=== PATIENT | female | born 1960 | race Two or more races ===

== ENCOUNTER 2019-01-28 22:33 | Inpatient (IN) | payer MEDICARE, OTHER ==
[~2019-01-28] VITALS: Ht 188 cm; Wt 80.7 kg
[2019-01-29 01:00] VITALS: BP 93/62
[2019-01-29 01:28] VITALS: BP 93/62
--- NOTE | 2019-01-29 01:30 | NUR ---
GPS ADMISSION NOTE PATIENT RECEIVED FROM [facility] (RESIDES AT [facility]). PATIENT ARRIVED ON THIS UNIT AT 0100 VIA STRETCHER WITH 2 EMT ESCORTS. PATIENT ADMITTED ON A 5150 HOLD FOR DTS AND DTO. PATIENT IS A/OX3. PER HOLD, PATIENT HERE FOR NOT BEING MED COMPLIANT AND "USED HER LEAD SYSTEMS DEVELOPER TO SET FIRE TO A PEER'S SHIRT WHILE SITTING OUTSIDE. SHE ALSO ATTEMPTED TO SET FIRE TO ANOTHER PEER'S SHIRT". PATIENT STATES, "I DONT KNOW WHY I DID IT" AND VERBALIZES FEELINGS OF SADNESS. THE 5150 WAS REVIEWED AND THE DOCUMENTATION IN THE 5150 HOLD APPEARS TO REFLECT THE PRESENTATION OF THE PATIENT. UPON FACE TO FACE ASSESSMENT PATIENT IS CURRENTLY LYING IN BED AWAKE, HAS NO S/S OR COMPLAINTS OF PAIN. PATIENT IS DISPLAYING NO S/S OF APPARENT DISTRESS. PATIENT IS ON ROOM AIR, BREATHING IS UNLABORED WITH EQUAL RISE AND FALL OF THE CHEST. PATIENT HAS INDEPENDENT MOBILITY IN BED AND IS AMBULATORY. PATIENT HAS NO NEEDS AT THIS TIME. PATIENT IS NOTED TO BEING WITHDRAWN, DEPRESSED, DISHEVELED, DISORGANIZED BUT CALM AND COOPERATIVE AT THIS TIME. NEEDS REDIRECTION. PATIENT DENIES SUICIDE IDEATIONS AND HOMICIDAL IDEATIONS AT THIS TIME. PATIENT DENIES VISUAL, AUDITORY AND TACTILE HALLUCINATIONS. PATIENT IS UNDER THE PSYCHIATRIC CARE OF DR. GELLER AND THE MEDICAL CARE OF DR KUMAR. PATIENT BELONGINGS WERE INVENTORIED AND CHECKED FOR CONTRABAND. ALL CONTRABAND REMOVED AND STORED IN PATIENT HALLWAY LOCKER. PATIENT ADVANCED DIRECTIVES PREFERENCE, IMMUNIZATIONS QUESTIONER, NECESSARY PAPERWORK, AND SKIN ASSESSMENT COMPLETED. PATIENT ORIENTATED TO ROOM, FLOOR, AND STAFF WITH ALL QUESTIONS ANSWERED. PATIENT EDUCATED ON THE USE OF THE CALL CERVANTES. PATIENT BED SIDE RAILS ARE UP X 2 FOR SAFETY. PATIENT BED IS LOCKED, LOW AND I WILL CONTINUE TO MONITOR THIS PATIENT Q 15 MIN WITH THE HELP OF STAFF TO MAINTAIN SAFETY.
[2019-01-29] MEDS ORDERED: MAG HYDROX/AL HYDROX/SIMETH 30 ML UDC PO PRN (02:00)
[2019-01-29] MEDS ORDERED: MAGNESIUM HYDROXIDE 30 ML UDC PO PRN (02:00)
[2019-01-29] MEDS ORDERED: ACETAMINOPHEN 325 MG TABLET PO PRN (02:00)
[2019-01-29] MEDS ORDERED: OMEG1CAP PO (02:07)
[2019-01-29] MEDS ORDERED: FLUO40CA49 PO (02:08)
[2019-01-29] MEDS ORDERED: MULT1TAB73 PO (02:09)
[2019-01-29] MEDS ORDERED: QUET200T PO (02:10)
[2019-01-29] MEDS ORDERED: HALO5TAB PO (02:12)
[2019-01-29] MEDS ORDERED: ACET-2067 PO (02:13)
[2019-01-29] MEDS ORDERED: LOPE2CAP PO (02:15)
[2019-01-29 07:10] LABS: BASOPHILS # (AUTO) 0.1 /CMM (0.0-0.2); EOSINOPHILS % (AUTO) 2.2 % (0.0-6.0); HEMATOCRIT 39 % (33-45); HEMOGLOBIN 13.4 g/dL (11.5-14.8); LYMPHOCYTES # (AUTO) 2.4 /CMM (0.8-4.8); LYMPHOCYTES % (AUTO) 41.4 % (20.0-44.0); MEAN CORPUSCULAR HGB CONC 35 g/dl (31.0-36.0); MEAN CORPUSCULAR VOLUME 93 fL (82-100); MONOCYTES # (AUTO) 0.5 /CMM (0.1-1.30); MONOCYTES % (AUTO) 8.7 % (2.0-12.0); NEUTROPHILS # (AUTO) 2.7 /CMM (1.8-8.9); NEUTROPHILS % (AUTO) 46.7 % (43.0-81.0); PLATELET COUNT (AUTO) 184 /CMM (150-450); RED BLOOD CELL COUNT(AUTO) 4.17 MIL/uL (4.0-5.2); WHITE BLOOD COUNT (AUTO) 5.8 K/uL (4.3-11.0)
[2019-01-29 07:12] LABS: BILIRUBIN,TOTAL 0.3 mg/dL (0.2-1.0); CALCIUM, SERUM 8.5 mg/dL (8.5-10.1); CREATININE 0.8 mg/dL (0.6-1.3); POTASSIUM 4.2 mmol/L (3.5-5.1)
[2019-01-29 08:00] VITALS: BP 100/64
[2019-01-29] MEDS: NICOTINE PATCH (21MG) 21 MG PATCH.TD24 TD SCH (09:00)
--- NOTE | 2019-01-29 10:15 | NUR ---
GPS/RN-NOTES PATIENT REFUSED NICOTINE PATCH DESPITE EXPLANATIONS RISK AND BENEFITS. PATIENT STATED" I'M OK WITHOUT IT". OFFERED X3.
--- NOTE | 2019-01-29 10:29 | NUR ---
GPS/RN-NOTES CLINICAL NURSING INTERN CALLED PATIENT CONSERVATOR MINDI HERNANDEZ AT [phone] AND LEFT MSG. VIA VOICE MAIL.
--- NOTE | 2019-01-29 13:52 | NUR ---
Social Work: aids social worker attempted to conduct face to face assessment, pt requested social work return after lunch. Social work attempted to assess pt, pt was asleep and could not be prompted. Social work will attempt again at a later time.
[2019-01-29] MEDS: LORAZEPAM 0.5 MG TABLET PO PRN (15:04)
--- NOTE | 2019-01-29 15:05 | NUR ---
GPS/RN-NOTES PATIENT REQUESTING ATIVAN, STATED" I'M ANXIOUS". ATIVAN 0.5MG P.O GIVEN PRN ORDER. WILL CONT. MONITORING FOR SAFETY AND BEHAVIOR.
--- NOTE | 2019-01-29 15:27 | NUR ---
Social Work: Social work reached out to pts conservator Rashaad (pts brother) [phone]. Pts brother reports he is the pts LPS conservator. Conservator is worried about pts actions, he is requesting pt be discharged to a locked facility for her and other pts safety. Social work spoke with pts Dr Martin who is recommending possible placement at [facility] Address: [address] [place] [address] Fax: and [facility] Address: [address] [place] [address] Fax: . Social work informed pts conservator of placement and pts conservator states he will look into facilities. Pt was brought to [facility] from [facility] a mental health housing program for 18-59 year olds. Pts brother reports that the facility is similar to a nursing home house with many freedoms. Pts brother who is pts conservator feels pt is need of a locked facility. Pts conservator reports that pt receives SDI in the amount of $1,719. Social work spoke with Angelique Nurse Advocate at [facility] ([phone]). bag worker Angelique reported that she has spoken with her field crop farming supervisor and facility is willing to accept pt back when discharged. bag worker is also going to speak with pts brother regarding [facility] locked facilities referrals as well. Social work will follow up with MD and medical staff regarding future placement.
[2019-01-29 16:00] VITALS: BP 100/51
--- NOTE | 2019-01-29 16:05 | NUR ---
GPS/RN-NOTES. PATIENT IN BED SLEEPING,NO ACUTE DISTRESS NOTED.
[2019-01-29 17:31] LABS: APPEARANCE,URINE CLEAR (CLEAR); BILIRUBIN,URINE NEGATIVE (NEGATIVE); BLOOD, URINE 1+ Ery/uL (NEGATIVE); COLOR,URINE YELLOW (YELLOW); KETONES,URINE NEGATIVE (NEGATIVE); LEUKOCYTE ESTERASE ,URINE 1+ (NEGATIVE); NITRITE, URINE NEGATIVE (NEGATIVE); PH,URINE 6.5 (5.0-8.0); PROTEIN,URINE NEGATIVE (NEGATIVE); UGLUCOSE NEGATIVE (NEGATIVE); UROBILINOGEN,URINE 0.2 EU/dL (0.2)
[2019-01-29 17:40] LABS: BACTERIA,URINE Few /HPF (None Seen); RBC,URINE 0-2 /HPF (0-2); SQUAMOUS EPITHELIAL CELL,UR Few /HPF (None Seen)
[2019-01-29 19:59] VITALS: BP 92/44
[2019-01-29] MEDS ORDERED: QUETIAPINE FUMARATE 100 MG TABLET PO SCH (21:00)
[2019-01-29 22:46] VITALS: BP 104/67
[2019-01-30 07:03] LABS: CHOLESTEROL 200 mg/dL (<200); HDL CHOLESTEROL 46 mg/dL (40-60); LDL 129 mg/dL (0-99); TRIGLYCERIDES 160 mg/dL (30-150)
[2019-01-30 08:00] VITALS: BP 100/63
[2019-01-30] MEDS: NICOTINE PATCH (21MG) 21 MG PATCH.TD24 TD SCH (09:00)
[2019-01-30] MEDS: FLUOXETINE HCL 20 MG CAPSULE PO SCH (09:00)
--- NOTE | 2019-01-30 09:54 | NUR ---
GPS/RN-NOTES PATIENT SPITS ALL DUE MEDICATIONS STATED" IT WILL GIVE ME INFECTIONS ON MY BLADDER". EMPLOYEE RELATION MANAGER EXPLAINED RISK AND BENEFITS BUT PATIENT STILL REFUSED. DR. GELLER IN THE UNIT AT THIS TIME AND MADE AWARE OF PATIENT REFUSAL.
[2019-01-30] MEDS ORDERED: HALOPERIDOL LACTATE INJ 5 MG/ML VIAL IM PRN (10:00)
[2019-01-30] MEDS ORDERED: BENZTROPINE MESYLATE (2MG/2ML) 2 MG/2 ML AMPUL IM PRN (10:00)
[2019-01-30] MEDS: HALOPERIDOL LACTATE 10 MG/5 ML UDC PO SCH ×2 (10:47→16:05)
[2019-01-30] MEDS: BENZTROPINE MESYLATE (1 MG) 1 MG TABLET PO SCH ×2 (10:47→16:05)
--- NOTE | 2019-01-30 11:17 | NUR ---
INITIAL DISCHARGE PLAN: Pt is currently living at [facility] a mental health facility, however pt has decline to return to facility. Social work has spoken with pts LPS conservator (pts brother Rashaad ([phone]) who is requesting pt be placed in a locked facility. Social work and psychiatrist have provided pts LPS conservator with placement options. Social work spoke with Dr Martin who is recommending possible placement at [facility] [place] Address: [address] [place] [address] Fax: and [facility] Address: [address] [place] [address] Fax: . Social work spoke with pts LPS conservator who stated that he is interested in [place] for his sisters placement. Sw will help form a safe and proper discharge in collaboration with .
[2019-01-30] MEDS: LORAZEPAM 0.5 MG TABLET PO PRN (14:07)
--- NOTE | 2019-01-30 14:10 | NUR ---
GPS/RN-NOTES PATIENT REQUESTING ATIVAN FOR ANXIETY. ATIVAN 0.5MG P.O GIVEN PRN ORDER.WILL CONT. MONITORING FOR SAFETY AND BEHAVIOR.
--- NOTE | 2019-01-30 15:10 | NUR ---
GPS/RN-NOTES PATIENT LAYING IN BED CALM,NO ACUTE DISTRESS NOTED.
--- NOTE | 2019-01-30 19:21 | NUR ---
RESTING, CALM, COMFORTABLE, DPRESSED. NO APPARENT DISTRESS NOTED.
[2019-01-30] MEDS: TEMAZEPAM 7.5 MG CAPSULE PO PRN (23:48)
--- NOTE | 2019-01-30 23:48 | NUR ---
Unable to sleep, temazepam 7.5 mg cap po given per her request.
--- NOTE | 2019-01-31 02:35 | NUR ---
PATIENT VERBALIZED, " I AM HEARING VOICES TELLING ME TO KILL EVERYONE." INSTRUCTED PATIENT TO GO BACK TO SLEEP.
[2019-01-31] MEDS: BENZTROPINE MESYLATE (1 MG) 1 MG TABLET PO SCH ×3 (02:40→16:55)
[2019-01-31] MEDS: LORAZEPAM 0.5 MG TABLET PO PRN ×3 (02:40→21:32)
--- NOTE | 2019-01-31 03:38 | NUR ---
APPROACHED THE NURSE'S STATION, ASKING FOR RESTORIL AGAIN, UNABLE TO SLEEP, ATIVAN 0.5 MG TAB PO GIVEN.
--- NOTE | 2019-01-31 04:05 | NUR ---
PATIENT CAME UP TO THE NURSE'S STATION AND STATED THAT SHE WANTS TO PUT WATER INTO THE OUTLET SO SHE CAN ELECTRECUTE HERSELF.
--- NOTE | 2019-01-31 04:16 | NUR ---
CALLED DR JEFFERSON ABOUT PATIENT'S CURRENT BEHAVIOR. ORDERED ZYPREXA 10 MG IM X1.
--- NOTE | 2019-01-31 04:25 | NUR ---
ZYPREXA 10 MG IM GIVEN X1. PATIENT ATTEMPTED TO HURT ANOTHER MALE PATIENT BY TOUCHING PUSHING HIS ARM. SHE GOT HOLD OF THE OLVIN CHAIR AND SHOVED IT BACK AND FORTH IN FRONT OF THE SAME PATIENT. EARLIER, SHE VERBALIZED THAT SHE WAS HEARING VOICES TELLING HER TO KILL EVERYONE. ALSO SHE VERBALIZED THAT SHE WANTS TO PUT WATER ON THE ELECTRIC OUTLET SO THAT SHE CAN GET ELECTRECUTED.
[2019-01-31] MEDS ORDERED: OLANZAPINE 10 MG VIAL IM ONE (04:30)
--- NOTE | 2019-01-31 05:30 | NUR ---
PATIENT GOT OUT OF HER OLVIN-CHAIR, PUSHED IT TO THE NURSE'S STATION, ATTEMPTED TO CLIMB UP BY STANDING ON THE OLVIN-CHAIR, SHE LIKES TO GET INSIDE AND USE THE TELEPHONE.
[2019-01-31 08:00] VITALS: BP 100/62
[2019-01-31] MEDS: NICOTINE PATCH (21MG) 21 MG PATCH.TD24 TD SCH (09:00)
[2019-01-31] MEDS: FLUOXETINE HCL 20 MG CAPSULE PO SCH (09:18)
[2019-01-31] MEDS: HALOPERIDOL LACTATE 10 MG/5 ML UDC PO SCH ×2 (09:18→16:55)
[2019-01-31 16:00] VITALS: BP 115/77
[2019-01-31 20:00] VITALS: BP 105/69
[2019-01-31] MEDS: TEMAZEPAM 7.5 MG CAPSULE PO PRN (21:00)
--- NOTE | 2019-01-31 21:00 | NUR ---
REQUESTED FOR SLEEPING PILL, TEMAZEPAM 7.5 MG CAP PO GIVEN.
--- NOTE | 2019-01-31 21:33 | NUR ---
APPEARS ANXIOUS, MAKING SMALL REQUEST LIKE WATER,UP AND ABOUT IN AND OUT OF HER ROOM, ATIVAN 0.5 MG TAB PO GIVEN.
[2019-02-01] MEDS: LORAZEPAM 0.5 MG TABLET PO PRN ×3 (03:29→16:03)
[2019-02-01 08:00] VITALS: BP 111/60
[2019-02-01] MEDS: NICOTINE PATCH (21MG) 21 MG PATCH.TD24 TD SCH (08:20)
[2019-02-01] MEDS: FLUOXETINE HCL 20 MG CAPSULE PO SCH (08:20)
[2019-02-01] MEDS: BENZTROPINE MESYLATE (1 MG) 1 MG TABLET PO SCH ×2 (08:20→17:41)
[2019-02-01] MEDS: HALOPERIDOL LACTATE 10 MG/5 ML UDC PO SCH ×2 (08:20→17:41)
[2019-02-01 16:07] VITALS: BP 98/67
--- NOTE | 2019-02-01 17:46 | NUR ---
GPS RN NOTE: PATIENT COMPLAIN THAT HALDOL MAKE HER FEEL NOT TO RELAX AND MORE AGITATED. PATIENT REQUESTING TO TALK TO HER PSYCHIATRIST. EXPLAINED TO THE PATIENT THAT WE WILL FOLLOW UP ON HER REQUEST. PATIENT AGREED AND APPRECIATED. ALL NEEDS ATTENDED AND MET. WILL CONTINUE TO MONITOR AND WILL FOLLOW UP
--- NOTE | 2019-02-01 19:34 | NUR ---
GPS RN NOTE, RECEIVED PATIENT AWAKE AND IN ROOM NO S/S OR COMPLAINTS OF PAIN AT THIS TIME. PATIENT IS DISPLAYING NO S/S OF APPARENT DISTRESS AT THIS TIME. PATIENT BREATHING IS UNLABORED WITH EQUAL RISE AND FALL OF THE CHEST. PATIENT IS ONE TO ONE SITTER FOR BEING A DANGER TO OTHERS. PATIENT IS ALERT AND ORIENTED X 3 ON ROOM AIR WITH A SPO2 OF 97%. PATIENT IS MED COMPLIANT, DISORGANIZED, DEPRESSED, COOPERATIVE, AND NEEDS REORIENTATION. PATIENT DENIES SUICIDE AND HOMICIDAL IDEATIONS AT THIS TIME. PATIENT ASSISTED WITH TURNING AND REPOSITIONING Q2HR AND PRN FOR COMFORT AND CIRCULATION. PATIENT HAS NO NEEDS AT THIS TIME. PATIENT EDUCATED ON THE USE OF THE CALL CERVANTES. PATIENT BED SIDE RAILS ARE UP X 2 FOR SAFETY, BED IS LOCKED AND LOW. WILL CONTINUE TO MONITOR AND MAINTAIN SAFETY Q15 MIN WITH THE HELP OF STAFF.
[2019-02-01 20:00] VITALS: BP 90/43
[2019-02-01] MEDS: TEMAZEPAM 7.5 MG CAPSULE PO PRN (20:06)
--- NOTE | 2019-02-01 20:06 | NUR ---
GPS RN NOTE, PATIENT HAS A COMPLAINT OF NOT BEING ABLE TO SLEEP AND IS REQUESTING RESTORIL AT THIS TIME. PATIENT VITAL SIGNS ARE STABLE. GAVE RESTORIL 7.5MG PO HS PRN ORDERED. WILL REASSESS FOR INSOMNIA AND I WILL CONTINUE TO MONITOR THIS PATIENT.
[2019-02-01] MEDS: OLANZAPINE 2.5 MG TABLET PO SCH (23:12)
[2019-02-02] MEDS: LORAZEPAM 0.5 MG TABLET PO PRN ×3 (07:00→20:06)
--- NOTE | 2019-02-02 07:00 | NUR ---
GPS RN NOTE, PATIENT HAS A COMPLAINT OF FEELING ANXIOUS AND IS REQUESTING ATIVAN AT THIS TIME. PATIENT VITAL SIGNS ARE STABLE. GAVE ATIVAN 0.5MG PO Q6HR PRN PRN ORDERED. WILL REASSESS FOR ANXIETY AND I WILL CONTINUE TO MONITOR THIS PATIENT.
[2019-02-02 08:00] VITALS: BP 100/62
[2019-02-02] MEDS: FLUOXETINE HCL 20 MG CAPSULE PO SCH (08:28)
[2019-02-02] MEDS: NICOTINE PATCH (21MG) 21 MG PATCH.TD24 TD SCH (08:28)
[2019-02-02] MEDS: OLANZAPINE 2.5 MG TABLET PO SCH ×2 (08:29→21:02)
[2019-02-02 16:00] VITALS: BP 100/66
--- NOTE | 2019-02-02 19:30 | NUR ---
GPS RN NOTE, RECEIVED PATIENT AWAKE AND IN ROOM NO S/S OR COMPLAINTS OF PAIN AT THIS TIME. PATIENT IS DISPLAYING NO S/S OF APPARENT DISTRESS AT THIS TIME. PATIENT BREATHING IS UNLABORED WITH EQUAL RISE AND FALL OF THE CHEST. PATIENT IS ALERT AND ORIENTED X 3 ON ROOM AIR WITH A SPO2 OF 95%. PATIENT IS MED COMPLIANT, DISORGANIZED, DEPRESSED, COOPERATIVE, AND NEEDS REORIENTATION. PATIENT DENIES SUICIDE AND HOMICIDAL IDEATIONS AT THIS TIME. PATIENT ASSISTED WITH TURNING AND REPOSITIONING Q2HR AND PRN FOR COMFORT AND CIRCULATION. PATIENT HAS NO NEEDS AT THIS TIME. PATIENT EDUCATED ON THE USE OF THE CALL CERVANTES. PATIENT BED SIDE RAILS ARE UP X 2 FOR SAFETY, BED IS LOCKED AND LOW. WILL CONTINUE TO MONITOR AND MAINTAIN SAFETY Q15 MIN WITH THE HELP OF STAFF.
[2019-02-02 19:33] VITALS: BP 102/63
--- NOTE | 2019-02-02 20:06 | NUR ---
GPS RN NOTE, PATIENT HAS A COMPLAINT OF OF FEELING ANXIOUS AND IS REQUESTING ATIVAN AT THIS TIME. PATIENT VITAL SIGNS ARE STABLE. GAVE ATIVAN 0.5MG PO Q6HR PRN ORDERED. WILL REASSESS FOR ANXIETY AND I WILL CONTINUE TO MONITOR THIS PATIENT.
[2019-02-02] MEDS: TEMAZEPAM 7.5 MG CAPSULE PO PRN (22:07)
[2019-02-03] MEDS: LORAZEPAM 0.5 MG TABLET PO PRN ×2 (08:24→15:16)
[2019-02-03 08:41] VITALS: BP 143/77
[2019-02-03] MEDS: FLUOXETINE HCL 20 MG CAPSULE PO SCH (08:43)
[2019-02-03] MEDS: NICOTINE PATCH (21MG) 21 MG PATCH.TD24 TD SCH (08:44)
[2019-02-03] MEDS: OLANZAPINE 2.5 MG TABLET PO SCH ×2 (08:44→20:20)
[2019-02-03 16:00] VITALS: BP 102/71
[2019-02-03 19:46] VITALS: BP 95/60
[2019-02-03] MEDS: TEMAZEPAM 7.5 MG CAPSULE PO PRN (21:24)
[2019-02-04] MEDS: ACETAMINOPHEN 325 MG TABLET PO PRN ×4 (06:29→22:17)
[2019-02-04 08:00] VITALS: BP 106/78
[2019-02-04] MEDS: FLUOXETINE HCL 20 MG CAPSULE PO SCH (08:35)
[2019-02-04] MEDS: LORAZEPAM 0.5 MG TABLET PO PRN ×2 (08:35→15:45)
--- NOTE | 2019-02-04 08:36 | NUR ---
GPS/RN-NOTES PATIENT REQUESTING ATIVAN FOR ANXIETY. ATIVAN 0.5MG P.O GIVEN PRN ORDER. WILL CONT. MONITORING FOR SAFETY AND BEHAVIOR.
[2019-02-04] MEDS: OLANZAPINE 2.5 MG TABLET PO SCH ×2 (08:43→20:31)
[2019-02-04] MEDS: NICOTINE PATCH (21MG) 21 MG PATCH.TD24 TD SCH (09:00)
--- NOTE | 2019-02-04 13:59 | NUR ---
SNF REFERRAL: JAMES faxed SNf referral to Dee, housing coordinator at [facility] Address: [address] [place] [address] for review.
--- NOTE | 2019-02-04 14:07 | NUR ---
JAMES received a call from Angelique, geriatric social worker at [facility] [address] [facility] [phone] requesting an update on pts status. JAMES informed her based on psychiatrist notes pt is still paranoid and seclusive and is taking medication. JAMES also informed her that pts brother who is pts conservator has requested pt be discharged to a locked SNF. Angelique stated that pt is able to return to the facility is pt wishes to. JAMES will keep Angelique updated.
[2019-02-04] MEDS: CEPHALEXIN MONOHYDRATE 250 MG CAPSULE PO SCH ×3 (14:30→23:19)
--- NOTE | 2019-02-04 14:33 | NUR ---
SUPPORTIVE COUNSELING: JAMES provided supportive counseling to pt regarding suicidality and being medication compliant. Pt has been taking her medications and wishes to return to [facility]. SW informed her that pts conservator wishes for her to be discharged to a locked SNF. JAMES will contact brother/conservator to discuss discharge plan.
[2019-02-04 15:11] VITALS: BP 106/70
--- NOTE | 2019-02-04 15:46 | NUR ---
GPS/RN-NOTES PATIENT STATED "I NEED MY ATIVAN". ATIVAN 0.5MG P.O GIVEN PRN ORDER. WILL CONT. MONITORING FOR SAFETY AND BEHAVIOR.
--- NOTE | 2019-02-04 16:14 | NUR ---
GPS/RN-NOTES PATIENT REQUESTING TYLENOL FOR BACK PAIN. TYLENOL 325MG P.O GIVEN PRN ORDER. WILL CONT. MONITORING.
--- NOTE | 2019-02-04 17:07 | NUR ---
GPS/RN-NOTES PATIENT IN THE HALLWAY AMBULATING .NO ACUTE DISTRESS NOTED. ENDORSE TO CHARGE NURSE FOR CONTINUITY OF CARE.
[2019-02-04 19:35] VITALS: BP 110/71
[2019-02-04] MEDS: TEMAZEPAM 7.5 MG CAPSULE PO PRN (21:44)
[2019-02-05] MEDS: CEPHALEXIN MONOHYDRATE 250 MG CAPSULE PO SCH ×3 (05:07→17:44)
[2019-02-05] MEDS: ACETAMINOPHEN 325 MG TABLET PO PRN (06:00)
[2019-02-05 08:00] VITALS: BP 122/71
[2019-02-05] MEDS: LORAZEPAM 0.5 MG TABLET PO PRN ×2 (08:32→16:34)
--- NOTE | 2019-02-05 08:34 | NUR ---
GPS/RN-NOTES PATIENT STATED "I NEED MY ATIVAN,I'M ANXIOUS". ATIVAN 0.5MG P.O GIVEN PRN ORDER. WILL CONT. MONITORING FOR SAFETY AND BEHAVIOR.
[2019-02-05] MEDS: NICOTINE PATCH (21MG) 21 MG PATCH.TD24 TD SCH (09:00)
[2019-02-05] MEDS: FLUOXETINE HCL 20 MG CAPSULE PO SCH (09:02)
[2019-02-05] MEDS: OLANZAPINE 2.5 MG TABLET PO SCH ×2 (09:02→20:50)
--- NOTE | 2019-02-05 09:35 | NUR ---
GPS/RN-NOTES PATIENT WATCHING TV IN THE DAY ROOM,CALM NO ACUTE DISTRESS NOTED.
--- NOTE | 2019-02-05 12:17 | NUR ---
GPS/RN-NOTES VANESSA LUNA SEEN THE PATIENT WITH NO TO INCREASED TYLENOL TO 650MG P.O Q6HR PRN. NOTED AND CARRIED OUT.
[2019-02-05] MEDS ORDERED: ACETAMINOPHEN 325 MG TABLET PO PRN (13:00)
--- NOTE | 2019-02-05 13:45 | NUR ---
JAMES called Angelique ([phone] ext [phone]) from [facility] and informed her that the pt will be going to [facility] ([facility]) tomorrow if the psychiatrist puts in a discharge order for the pt.
--- NOTE | 2019-02-05 13:48 | NUR ---
JAMES called the pts conservator Rashaad (pts brother) [phone] who stated that he was on a conference call and that he will call the SW back in 5-10 minutes.
--- NOTE | 2019-02-05 14:40 | NUR ---
Pts conservator Rashaad (pts brother) [phone] called the SW back and stated that he believes that [facility] will be a short term placement and therefore he would not like the room at [facility] to be given away.
--- NOTE | 2019-02-05 15:45 | NUR ---
JAMES called Angelique ([phone]) from [facility] and informed her that the pt will be going to [facility] the following day and that she should keep her room available because it may be a short term placement.
[2019-02-05 16:04] VITALS: BP 124/74
--- NOTE | 2019-02-05 16:21 | NUR ---
JAMES called the pts conservator Rashaad (pts brother) [phone] and left him a voicemail stating that the pt is going to be discharged the following day to [facility].
--- NOTE | 2019-02-05 16:34 | NUR ---
GPS/RN-NOTES PATIENT STATED "I NEED MY ATIVAN PLEASE". ATIVAN 0.5MG P.O GIVEN PRN ORDER. WILL CONT. MONITORING FOR SAFETY AND BEHAVIOR.
[2019-02-05 20:04] VITALS: BP 99/65
[2019-02-05] MEDS: TEMAZEPAM 7.5 MG CAPSULE PO PRN (21:08)
[2019-02-06] MEDS: CEPHALEXIN MONOHYDRATE 250 MG CAPSULE PO SCH ×3 (00:03→12:35)
[2019-02-06 08:00] VITALS: BP 109/67
[2019-02-06] MEDS: NICOTINE PATCH (21MG) 21 MG PATCH.TD24 TD SCH (08:17)
[2019-02-06] MEDS: FLUOXETINE HCL 20 MG CAPSULE PO SCH (08:17)
[2019-02-06] MEDS: OLANZAPINE 2.5 MG TABLET PO SCH (08:17)
--- NOTE | 2019-02-06 09:07 | NUR ---
DR. GELLER GAVE AN ORDER TO D/C PT. TO [facility], WITH MEDS TO CONTINUE AND TO FOLLOW UP WITH PSYCH AND MEDICAL DOCTORS.
[2019-02-06] MEDS: LORAZEPAM 0.5 MG TABLET PO PRN (10:27)
--- NOTE | 2019-02-06 10:30 | NUR ---
GPS/RN-NOTES PATIENT STATED "I NEED MY ATIVAN I'M ANXIOUS". ATIVAN 0.5MG P.O GIVEN PRN ORDER. WILL CONT. MONITORING FOR SAFETY AND BEHAVIOR.
--- NOTE | 2019-02-06 11:30 | NUR ---
GPS/RN-NOTES PATIENT IN THE DAY ROOM WATCHING TV,CALM, NO ACUTE DISTRESS NOTED.
--- NOTE | 2019-02-06 13:15 | NUR ---
GPS/RN-NOTES PATIENT WAS DISCHARGE TO [facility] [place] TODAY. REPORT WAS GIVEN TO ROBERT( BENCH ASSEMBLER OPERATOR). DR. GELLER AND VANESSA LUNA AWARE AND AGREES OF PATIENT DISCHARGE WITH ORDERS. PATIENT SIGN ALL DISCHARGE PAPERS INCLUDING BELONGINGS LIST. PATIENT LEFT THE UNIT IN STABLE CONDITION, DID NOT VERBALIZE SI/HI, DENIES VISUAL/AUDITORY HALLUCINATIONS AT THE TIME OF DISCHARGE.PER , PATIENTS BROTHER/ CONSERVATOR MINDI AWARE OF THE DISCHARGE. PRODUCT ENGINEER BY AMBULANCE VIA GURNEY WITH TWO STAFF ASSIST. PATIENT LEFT THE UNIT WITH ALL BELONGINGS.
--- NOTE | 2019-02-06 13:45 | NUR ---
DISCHARGE NOTE: Pt discharged to [facility] ([facility] located [place] [address] [place] [address]; . Pt was transported via [facility] (Trip #[id number]) to [facility] at 1PM. Pt's brother, Rashaad ([phone]), was notified and agreed with discharge. Pts mood was anxious with congruent affect. Pt denied visual/auditory hallucinations and denied suicidal/homicidal ideations. Pt will be under the psychiatric care of Psychiatrist: Dr. Martin located at [address] [facility], [place] [address]; and medical care of Dust Collector Operator: Dr. Weiss located at [address] [facility] [address] [address], [place] [address]; . The multidisciplinary exitcare form was done, printed, signed, and given to the patient.
== END 2019-02-06 13:15 | DRG 885 ==
LOC: GPS 01-29 00:53
PROVIDERS: ADMIT Psychiatry & Neurology Psychiatry; ATTEND Internal Medicine
DX: F20.0 Paranoid schizophrenia (principal); E44.1 Mild protein-calorie malnutrition; F29 Unspecified psychosis not due to a substance or known physiological condition; E78.5 Hyperlipidemia, unspecified; E88.09 Other disorders of plasma-protein metabolism, not elsewhere classified; Z91.14 Patient's other noncompliance with medication regimen; Z73.6 Limitation of activities due to disability; Z68.22 Body mass index [BMI] 22.0-22.9, adult
CPT/HCPCS: 36415; 80053-TC; 80061-TC; 81000-TC; 85025-TC; 87081-TC; 87086-TC; J3490

== ENCOUNTER 2021-11-03 10:43 | Inpatient (IN) | payer MEDICARE, OTHER ==
[~2021-11-03] VITALS: Ht 185.4 cm; Wt 74.8 kg
[~2021-11-03 10:43] MED LIST: ACET-3292 PO; FLUO40CA49 PO; HALO5TAB PO; LOPE2CAP PO; MULT-754 PO; OMEG1CAP PO; QUET200T PO
--- NOTE | 2021-11-03 10:50 | NUR ---
UNABLE TO PROVIDE URINE SAMPLE AT THIS TIME
[2021-11-03] MEDS ORDERED: OLANZAPINE 5 MG TABLET PO ONE ×2 (11:00→11:30)
--- NOTE | 2021-11-03 11:05 | NUR ---
COVID SWAB DONE AND SENT TO LAB
[2021-11-03] MEDS ORDERED: OLANZAPINE 5 MG TABLET ONE (11:09)
[2021-11-03 11:17] LABS: BASOPHILS % (AUTO) 0.5 % (0.0-2.0); EOSINOPHILS % (AUTO) 1.3 % (0.0-6.0); HEMATOCRIT 38 % (33-45); HEMOGLOBIN 12.9 g/dL (11.5-14.8); LYMPHOCYTES # (AUTO) 1.9 K/uL (0.8-4.8); LYMPHOCYTES % (AUTO) 29.2 % (20.0-44.0); MEAN CORPUSCULAR HGB CONC 34 g/dl (31.0-36.0); MEAN CORPUSCULAR VOLUME 93 fL (82-100); MONOCYTES # (AUTO) 0.6 K/uL (0.1-1.30); MONOCYTES % (AUTO) 9.3 % (2.0-12.0); NEUTROPHILS # (AUTO) 3.8 K/uL (1.8-8.9); NEUTROPHILS % (AUTO) 59.7 % (43.0-81.0); PLATELET COUNT (AUTO) 176 K/uL (150-450); RED BLOOD CELL COUNT(AUTO) 4.08 MIL/uL (4.0-5.2); WHITE BLOOD COUNT (AUTO) 6.4 K/uL (4.3-11.0)
[2021-11-03] MEDS ORDERED: OLANZAPINE 10 MG VIAL IM ONE (11:30)
[2021-11-03 12:11] LABS: CALCIUM, SERUM 8.3 mg/dL (8.5-10.1); CARBON DIOXIDE 26 mmol/L (21-32); CHLORIDE 105 mmol/L (98-107); CREATININE 0.8 mg/dL (0.6-1.3); GLUCOSE 95 mg/dL (74-106); POTASSIUM 3.9 mmol/L (3.5-5.1); SODIUM SERUM 139 mmol/L (136-145); UREA NITROGEN, BLOOD 13 mg/dL (7-18)
[2021-11-03 12:15] LABS: BILIRUBIN,URINE NEGATIVE (NEGATIVE); COLOR,URINE YELLOW (YELLOW); LEUKOCYTE ESTERASE ,URINE MODERATE (NEGATIVE); NITRITE, URINE NEGATIVE (NEGATIVE); PROTEIN,URINE NEGATIVE (NEGATIVE); UGLUCOSE NEGATIVE (NEGATIVE); UROBILINOGEN,URINE 0.2 EU/dL (0.2)
[2021-11-03 12:17] LABS: ALANINE AMINOTRANSFERASE 14 U/L (12-78); ALBUMIN 3.3 g/dL (3.4-5.0); ALCOHOL, BLOOD < 3 mg/dL (0-0); ALKALINE PHOSPHATASE 52 U/L (46-116); ASPARTATE AMINOTRANSFERASE 12 U/L (15-37); BILIRUBIN,DIRECT 0.1 mg/dL (0.0-0.2); BILIRUBIN,TOTAL 0.4 mg/dL (0.2-1.0); TOTAL PROTEIN, SERUM 7.1 g/dL (6.4-8.2)
[2021-11-03 12:20] LABS: ACETAMINOPHEN 0 ug/ml (10-30)
[2021-11-03 12:31] LABS: BACTERIA,URINE Few /HPF (None Seen); SQUAMOUS EPITHELIAL CELL,UR Moderate /HPF (None Seen)
[2021-11-03] MEDS ORDERED: CEFTRIAXONE 1 G VIAL IM ONE (13:00)
[2021-11-03] MEDS ORDERED: CEFTRIAXONE 1 G VIAL ONE (13:01)
[2021-11-03] MEDS ORDERED: LIDOCAINE /MPF 1% VIAL 5 ML VIAL ONE (13:01)
--- NOTE | 2021-11-03 13:38 | NUR ---
BED 220A
[2021-11-03] MEDS ORDERED: CLON0.5T4 PO (13:43)
[2021-11-03] MEDS ORDERED: DIVA500T2 PO (13:43)
--- NOTE | 2021-11-03 13:46 | NUR ---
MOVE SHEET SUBMITTED.
--- NOTE | 2021-11-03 13:55 | NUR ---
ATTEMPTED TO GIVE REPORT. RN WILL CALL BACK.
--- NOTE | 2021-11-03 14:14 | NUR ---
CALLED HOUSE [facility] FOR BED, NO BEDS AVAILABLE AT THIS TIME.
--- NOTE | 2021-11-03 14:22 | NUR ---
REPORT GIVEN TO KESHA CLEMENTS.
[2021-11-03] MEDS ORDERED: ACETAMINOPHEN 325 MG TABLET PO PRN (15:00)
[2021-11-03] MEDS ORDERED: TEMAZEPAM 7.5 MG CAPSULE PO PRN (15:00)
[2021-11-03] MEDS ORDERED: MAG HYDROX/AL HYDROX/SIMETH 30 ML UDC PO PRN (15:00)
[2021-11-03] MEDS ORDERED: MAGNESIUM HYDROXIDE 30 ML UDC PO PRN (15:00)
--- NOTE | 2021-11-03 15:09 | NUR ---
RN-CO: ATIVAN 1 MG PO GIVEN FOR THOUGHTS OF HURTING ANYBODY NOW.
--- NOTE | 2021-11-03 15:14 | NUR ---
JAMES Initial Discharge Plan: Patient currently resides at board and care located at [address] [place] [address]; ([phone]). Pt would want to return back to her board and care upon dc. JAMES will work with the MD and treatment team to coordinate appropriate discharge.
[2021-11-03] MEDS: LORAZEPAM 0.5 MG TABLET PO PRN (15:18)
[2021-11-03 16:00] VITALS: BP 141/94
--- NOTE | 2021-11-03 16:03 | NUR ---
RN-CO: ADMITTED A 61 YEAR OLD CAUC. FEMALE FROM [facility]. SHE CURRENTLY RESIDES IN A BOARD AND CARE AND WAS SENT TO EMERGENCY DEPT FOR HEARING VOICES TELLING HER TO HURT ANYBODY BUT SHE DOES NOT WANT TO DO IT. SHE STATED THAT SHE IS FEELING DEPRESSED BUT DENIED SI, AND ANXIOUS. HER AFFECT IS BLUNTED AND APPEARANCE IS DISHEVELED. HER SPEECH IS SLOW AND SOFT. DR WALDRON WAS NOTIFIED AND MADE AWARE THAT PT IS A LPS CONSERVE AND HAS A AUTHORIZATION TO DETAIN AND TREAT. PT'S RIGHTS BOOKLET WAS GIVEN TO HER AND DISCUSSED. ALL BELONGINGS WAS SCREENED FOR CONTRABAND. MANDY MANDUJANO RV REPAIR TECHNICIAN WAS MADE AWARE TO RECONCILE HOME MEDICAITONS.
[2021-11-03] MEDS ORDERED: BLOOD SUGAR DIAGNOSTIC 1 EACH STRIP IN ONE (17:00)
--- NOTE | 2021-11-03 18:02 | NUR ---
RN-CO: SKIN ASSESSMENT DONE, NO BRUISES NOR SKIN ISSUES NOTED.
--- NOTE | 2021-11-03 18:14 | NUR ---
RN-CO: SKIN IS CLEAR AND INTACT. MINDI CRISTOFERATOR- [phone], MADE AWARE OF THE PT'S ADMISSION.
[2021-11-04] MEDS: CEPHALEXIN MONOHYDRATE 500 MG CAPSULE PO SCH ×4 (00:27→17:23)
--- NOTE | 2021-11-04 00:55 | NUR ---
GPS-RN NOTES: PATIENT C/O HEARING VOICES "I WANT TO HURT OTHERS". DR. WALDRON IN THE UNIT, ASSESSED AND EVALUATED PATIENT. ORDERED SEROQUEL AND DEPAKOTE FOR TONIGHT AND LUVOX IN AM. INFORMED DR. WALDRON REGARDING PATIENT'S BLOOD PRESSURE TAKEN 89/52, PULSE 95. PER , HOLD SEROQUEL AND GIVE DEPAKOTE ONLY. WILL CONTINUE TO MONITOR PATIENT'S SAFETY. CHARGE NURSE LEELEE MARTINEZ. Addendum: 11/05/21 at 0119 by REID ORTA RN CORRECTION: DATED ON 11/05/2021
[2021-11-04 08:00] VITALS: BP 106/68
[2021-11-04 08:52] LABS: ALBUMIN 2.8 g/dL (3.4-5.0); BILIRUBIN,TOTAL 0.2 mg/dL (0.2-1.0); CALCIUM, SERUM 8.8 mg/dL (8.5-10.1); CREATININE 0.8 mg/dL (0.6-1.3); POTASSIUM 4.2 mmol/L (3.5-5.1); TOTAL PROTEIN, SERUM 6.2 g/dL (6.4-8.2)
[2021-11-04 08:58] LABS: CHOLESTEROL 226 mg/dL (<200); HDL CHOLESTEROL 58 mg/dL (40-60); LDL 129 mg/dL (0-99); TRIGLYCERIDES 155 mg/dL (30-150)
--- NOTE | 2021-11-04 10:02 | NUR ---
JAMES LPS CONSERVATOR: JAMES spoke with patient's conservator Rashaad ([phone]) to gather collateral. He stated that pt resides at [facility] located at [address] [place] [address]; ([phone]) and once stable he would want pt to return back.
--- NOTE | 2021-11-04 10:02 | NUR ---
Board and Care Mandy Wagner: JAMES contacted admin Padmini/Adamaris ([phone]) they stated pt is welcomed back upon dc.
--- NOTE | 2021-11-04 10:04 | NUR ---
Mandarin Teacher: Cornel ([phone]) [facility]. He reported that she will help with transportation upon dc.
[2021-11-04] MEDS: LORAZEPAM 0.5 MG TABLET PO PRN (14:15)
[2021-11-04 16:00] VITALS: BP 100/59
[2021-11-04 20:27] VITALS: BP 105/59
--- NOTE | 2021-11-05 00:01 | NUR ---
GPS-RN NOTES: PATIENT C/O HEARING VOICES "I WANT TO HURT OTHERS". DR. WALDRON IN THE UNIT, ASSESSED AND EVALUATED PATIENT. ORDERED SEROQUEL AND DEPAKOTE FOR TONIGHT AND LUVOX IN AM. INFORMED DR. WALDRON REGARDING PATIENT'S BLOOD PRESSURE TAKEN 89/52, PULSE 95. PER MD, HOLD SEROQUEL AND GIVE DEPAKOTE ONLY. WILL CONTINUE TO MONITOR PATIENT'S SAFETY. CHARGE NURSE LEELEE MARTINEZ.
[2021-11-05] MEDS: CEPHALEXIN MONOHYDRATE 500 MG CAPSULE PO SCH ×4 (00:05→17:47)
[2021-11-05] MEDS: DIVALPROEX SODIUM 500 MG TABLET.DR PO SCH ×3 (00:26→21:18)
[2021-11-05] MEDS: QUETIAPINE FUMARATE 100 MG TABLET PO SCH ×4 (00:26→21:30)
[2021-11-05 08:00] VITALS: BP 91/56
[2021-11-05] MEDS: FLUVOXAMINE MALEATE 50 MG TABLET PO SCH ×3 (09:16→17:48)
--- NOTE | 2021-11-05 09:17 | NUR ---
SEROQUEL WITHHELD SEROQUEL WITHHELD PER MD ORDER DUE TO LOW BP OF 91/56. WILL CONTINUE TO MONITOR.
[2021-11-05] MEDS: LORAZEPAM 0.5 MG TABLET PO PRN (13:34)
--- NOTE | 2021-11-05 13:36 | NUR ---
Pt. is anxious, paces back and forth in the hallway. Ativan po prn given.
--- NOTE | 2021-11-05 13:57 | NUR ---
MEDICATION UPDATE CALLED CELE SANDOVAL ( PER DR. WALDRON REQUEST TO VERIFY PATIENT'S MEDICATION) TEL # [phone] AND WAS ABLE TO SPEAK TO THE [employer]. PER THE [facility], PATIENT IS TAKING CLOZAPINE 100MG X 3 TABS= 300MG PO EVERY BEDTIME. WILL NOTIFY DR. WALDRON.
[2021-11-05] MEDS ORDERED: CLOZ100T32 PO (14:25)
[2021-11-05 16:00] VITALS: BP 90/53
[2021-11-05 20:12] VITALS: BP 93/52
[2021-11-05 20:34] VITALS: BP 93/52
--- NOTE | 2021-11-05 21:41 | NUR ---
GPS RN NOTE: WITHHELD SEROQUEL SEROQUEL WITHHELD DUE TO LOW B/P: 93/52. WILL CONTINUE TO MONITOR FOR ANY CHANGE IN PT'S CONDITION
[2021-11-06] MEDS: CEPHALEXIN MONOHYDRATE 500 MG CAPSULE PO SCH ×4 (00:12→17:43)
[2021-11-06 08:00] VITALS: BP 102/53
[2021-11-06] MEDS: FLUVOXAMINE MALEATE 50 MG TABLET PO SCH ×3 (08:32→16:14)
[2021-11-06] MEDS: DIVALPROEX SODIUM 500 MG TABLET.DR PO SCH ×2 (08:32→21:13)
[2021-11-06] MEDS: QUETIAPINE FUMARATE 100 MG TABLET PO SCH (08:35)
[2021-11-06] MEDS ORDERED: hydrOXYzine PAMOATE 25 MG CAPSULE PO PRN (09:00)
[2021-11-06] MEDS ORDERED: diphenhydrAMINE HCL 50 MG CAPSULE PO PRN (09:00)
[2021-11-06 10:00] LABS: BASOPHILS # (AUTO) 0.1 K/uL (0.0-0.2); BASOPHILS % (AUTO) 1.2 % (0.0-2.0); EOSINOPHILS % (AUTO) 2.5 % (0.0-6.0); HEMATOCRIT 37 % (33-45); HEMOGLOBIN 12.2 g/dL (11.5-14.8); LYMPHOCYTES # (AUTO) 1.9 K/uL (0.8-4.8); LYMPHOCYTES % (AUTO) 38.3 % (20.0-44.0); MEAN CORPUSCULAR HGB CONC 33 g/dl (31.0-36.0); MEAN CORPUSCULAR VOLUME 94 fL (82-100); MONOCYTES # (AUTO) 0.4 K/uL (0.1-1.30); MONOCYTES % (AUTO) 8.8 % (2.0-12.0); NEUTROPHILS # (AUTO) 2.4 K/uL (1.8-8.9); NEUTROPHILS % (AUTO) 49.2 % (43.0-81.0); PLATELET COUNT (AUTO) 168 K/uL (150-450); RED BLOOD CELL COUNT(AUTO) 3.89 MIL/uL (4.0-5.2); WHITE BLOOD COUNT (AUTO) 4.9 K/uL (4.3-11.0)
[2021-11-06 16:00] VITALS: BP 99/74
[2021-11-06 20:00] VITALS: BP 78/58
[2021-11-06 21:00] VITALS: BP 92/54
[2021-11-06] MEDS: CLOZAPINE 100 MG TABLET PO SCH (21:14)
[2021-11-06 22:36] VITALS: BP 92/54
[2021-11-07] MEDS: CEPHALEXIN MONOHYDRATE 500 MG CAPSULE PO SCH ×4 (00:01→17:07)
[2021-11-07 08:00] VITALS: BP 116/73
[2021-11-07] MEDS: FLUVOXAMINE MALEATE 50 MG TABLET PO SCH ×3 (08:44→17:07)
[2021-11-07] MEDS: DIVALPROEX SODIUM 500 MG TABLET.DR PO SCH ×2 (08:45→21:23)
--- NOTE | 2021-11-07 11:38 | NUR ---
JAMES Family Contact: JAMES spoke with patient's conservator Rashaad ([phone]) and wanted an update of pt's behavior. JAMES explained the doctor changed her medications and monitoring pt.
[2021-11-07 16:00] VITALS: BP 109/60
[2021-11-07 20:20] VITALS: BP 103/58
[2021-11-07] MEDS: CLOZAPINE 100 MG TABLET PO SCH (21:23)
[2021-11-08] MEDS: CEPHALEXIN MONOHYDRATE 500 MG CAPSULE PO SCH ×5 (02:47→17:00)
[2021-11-08] MEDS: FLUVOXAMINE MALEATE 50 MG TABLET PO SCH ×3 (08:29→17:00)
[2021-11-08] MEDS: DIVALPROEX SODIUM 500 MG TABLET.DR PO SCH ×2 (08:29→21:32)
[2021-11-08 11:27] VITALS: BP 142/82
[2021-11-08] MEDS: CLOZAPINE 25 MG TABLET PO SCH (12:26)
--- NOTE | 2021-11-08 15:49 | NUR ---
PT STATES FEELING ANXIOUS. PER DR WALDRON ORDERED AND ADMINISTERED ATIVAN 1MG PO X 1. WILL CONTINUE TO MONITOR.
--- NOTE | 2021-11-08 15:51 | NUR ---
PER DR WALDRON. KLONOPIN 0.25MG BID PRN ORDERED. FOR ANXIETY
[2021-11-08 16:00] VITALS: BP 96/65
[2021-11-08] MEDS ORDERED: LORAZEPAM 1 MG TABLET PO ONE (16:00)
[2021-11-08] MEDS ORDERED: clonazePAM 0.5 MG TABLET PO PRN (16:00)
[2021-11-08 20:00] VITALS: BP 96/63
[2021-11-08 20:20] VITALS: BP 96/63
[2021-11-08] MEDS: CLOZAPINE 100 MG TABLET PO SCH (22:02)
[2021-11-09] MEDS: CEPHALEXIN MONOHYDRATE 500 MG CAPSULE PO SCH ×4 (00:33→17:27)
[2021-11-09 08:00] VITALS: BP 102/68
[2021-11-09] MEDS: DIVALPROEX SODIUM 500 MG TABLET.DR PO SCH ×2 (09:13→21:14)
[2021-11-09] MEDS: FLUVOXAMINE MALEATE 50 MG TABLET PO SCH ×4 (09:14→21:59)
[2021-11-09] MEDS: CLOZAPINE 25 MG TABLET PO SCH (09:15)
[2021-11-09 16:00] VITALS: BP 101/73
--- NOTE | 2021-11-09 19:00 | NUR ---
RN ENDING NOTES PATIENT SLEPT IN BED AND STAYED IN ROOM UNTIL ACTIVITIES AND GROUP THERAPY DECIDED TO PARTICIPATE, WAS AGGITATED ABOUT MEDICATIONS ASKED FOR A PRINT OUT OF MEDS EXPLAINED ON MEDS USES FOR THEM AND SIDE EFFECTS - APPEARED TO HAVE SOME UNDERSTANDING , REDIRECTED AND ALL NEEDS PROVIDED , ENCOURAGED WATER AND FLUIDS SHE IS ON ABT FOR UTI - NO ADVERSE SIDE EFFECTS NOTED DURING AM SHIFT, BED LOW TO FLOOR , WHEELS LOCKED WENT TO BED AROUND 1750 PM
[2021-11-09 20:00] VITALS: BP 103/65
[2021-11-09] MEDS: CLOZAPINE 100 MG TABLET PO SCH (21:15)
--- NOTE | 2021-11-09 21:44 | NUR ---
GPS NOTES PATIENT WAS SEEN AND EXAMINED BY DR. WALDRON WITH NEW ORDER OF RESTORIL 7.5MG PO PRN NOTED AND CARRIED OUT.
[2021-11-09 21:50] VITALS: BP 101/61
[2021-11-09] MEDS: TEMAZEPAM 7.5 MG CAPSULE PO PRN (22:27)
--- NOTE | 2021-11-09 22:27 | NUR ---
GPS NOTES PATIENT C/O INABILITY TO SLEEP. PRN RESTORIL 7.5MG PO GIVEN ORDERED PER PT'S REQUEST. WILL CONTINUE TO MONITOR.
[2021-11-10] MEDS: CEPHALEXIN MONOHYDRATE 500 MG CAPSULE PO SCH ×5 (00:21→23:51)
[2021-11-10 08:00] VITALS: BP 104/64
[2021-11-10] MEDS: CLOZAPINE 25 MG TABLET PO SCH (09:15)
[2021-11-10] MEDS: DIVALPROEX SODIUM 500 MG TABLET.DR PO SCH ×2 (09:15→21:10)
[2021-11-10] MEDS: FLUVOXAMINE MALEATE 50 MG TABLET PO SCH ×3 (09:15→21:11)
--- NOTE | 2021-11-10 10:01 | NUR ---
JAMES Individual Therapy: SW met with patient to conduct therapy on patient's presenting problem. Patient expressed that she is "tired" and does not want to conduct therapy at this time.
--- NOTE | 2021-11-10 15:44 | NUR ---
SW Family Contact: SW spoke with patient's conservator Rashaad ([phone]) and stated he wants doctor to be in contact with patient's outpatient psychiatrist and stated her patient case manager Armando ([phone]) can coordinate this.
--- NOTE | 2021-11-10 15:45 | NUR ---
Outreach Rep: Cornel ([phone]) [facility] contacted and requested number and name of psychiatrist so our psychiatrist can be in contact with pt's outpatient psychiatrist. Cornel stated that the psychiatrist is unable too. She stated that she will be in contact with Rashaad the conservator to explain.
[2021-11-10 16:00] VITALS: BP 120/83
[2021-11-10 20:00] VITALS: BP 103/66
[2021-11-10] MEDS: CLOZAPINE 100 MG TABLET PO SCH (21:10)
[2021-11-10] MEDS: TEMAZEPAM 7.5 MG CAPSULE PO PRN (21:50)
--- NOTE | 2021-11-10 21:50 | NUR ---
GPS NOTES: INSOMNIA PATIENT C/O INABILITY TO SLEEP. PRN RESTORIL 7.5MG PO GIVEN ORDERED PER PT'S REQUEST. WILL CONTINUE TO MONITOR.
--- NOTE | 2021-11-10 23:13 | NUR ---
GPS NOTES DR. WALDRON IN THE UNIT AND ORDERED TO DISCONTINUE RESTORIL 7.5MG PO PRN. CHARGE NURSE AWARE.
[2021-11-11] MEDS: CEPHALEXIN MONOHYDRATE 500 MG CAPSULE PO SCH ×4 (06:45→23:19)
[2021-11-11 08:00] VITALS: BP 101/68
[2021-11-11] MEDS: DIVALPROEX SODIUM 500 MG TABLET.DR PO SCH ×2 (08:15→20:39)
[2021-11-11] MEDS: FLUVOXAMINE MALEATE 50 MG TABLET PO SCH ×3 (08:15→21:22)
[2021-11-11] MEDS: CLOZAPINE 25 MG TABLET PO SCH (08:15)
[2021-11-11 16:00] VITALS: BP 108/75
[2021-11-11 19:22] VITALS: BP 104/69
[2021-11-11] MEDS: CLOZAPINE 100 MG TABLET PO SCH (21:11)
[2021-11-12] MEDS: CEPHALEXIN MONOHYDRATE 500 MG CAPSULE PO SCH ×4 (06:10→23:06)
--- NOTE | 2021-11-12 07:09 | NUR ---
RN NOTE: REFUSE VPA LEVEL BLOOD DRAW. PATIENT REFUSED VPA LEVEL BLOOD DRAW DESPITE OF RISKS AND BENEFITS EXPLANATIONS. ENCOURAGED PATIENT MULTIPLE TIMES BUT SHE STATED," THEY DRAW BLOOD EVERY DAY, I DON'T WANT IT ANYMORE." ENDORSED TO AM RN.
[2021-11-12 08:00] VITALS: BP 106/72
--- NOTE | 2021-11-12 08:40 | NUR ---
Pt. still refusing for lab draw for the valproic acid level. Explained on the importance and still refusing and telling "I don't need it, they draw blood from me every day". Will continue to monitor for safety.
[2021-11-12] MEDS: CLOZAPINE 25 MG TABLET PO SCH (08:46)
[2021-11-12] MEDS: FLUVOXAMINE MALEATE 50 MG TABLET PO SCH ×3 (08:46→21:08)
--- NOTE | 2021-11-12 10:06 | NUR ---
Dr. Barr in the unit and notified that pt. is refusing Valproic acid level and said she will not stop the Depakote med.
[2021-11-12] MEDS: DIVALPROEX SODIUM 500 MG TABLET.DR PO SCH ×3 (10:08→21:08)
--- NOTE | 2021-11-12 12:16 | NUR ---
Pt. agreed for lab drawn for the valproic acid level. Per psychiatrist no need to wait for the result and ok to give the Depakote po.
[2021-11-12 16:00] VITALS: BP 119/75
--- NOTE | 2021-11-12 19:30 | NUR ---
GPS RN NOTE, RECEIVED PATIENT AWAKE AND IN BED, NO S/S OR COMPLAINTS OF PAIN AT THIS TIME. PATIENT IS DISPLAYING NO S/S OF APPARENT DISTRESS AT THIS TIME. PATIENT BREATHING IS UNLABORED WITH EQUAL RISE AND FALL OF THE CHEST. PATIENT IS ALERT AND ORIENTED X 2 ON ROOM AIR WITH A SPO2 97%. PATIENT IS COMPLIANT WITH MEDICATIONS, FLAT AFFECT, POLITE, ISOLATIVE, AND COOPERATIVE. PATIENT DENIES SUICIDAL AND HOMICIDAL IDEATIONS AT THIS TIME. PATIENT ASSISTED WITH TURNING AND REPOSITIONING Q2HR AND PRN FOR COMFORT AND CIRCULATION. PATIENT HAS NO NEEDS AT THIS TIME. PATIENT EDUCATED ON THE USE OF THE CALL CERVANTES. PATIENT BED SIDE RAILS UP X 2 FOR SAFETY. PATIENT BED IS LOCKED, LOW, WITH BED ALARM ON. WILL CONTINUE TO MONITOR THIS PATIENT Q15 MINUTES WITH THE HELP OF STAFF TO MAINTAIN SAFETY.
[2021-11-12] MEDS: CLOZAPINE 100 MG TABLET PO SCH (21:08)
--- NOTE | 2021-11-12 23:09 | NUR ---
GPS RN NOTE, PATIENT HAS A COMPLAINT OF FEELING ANXIOUS AND IS REQUESTING KLONOPIN AT THIS TIME. PATIENT VITAL SIGNS ARE STABLE. GAVE KLONOPIN 0.25MG PO BID PRN ORDERED. WILL REASSESS FOR ANXIETY AND I WILL CONTINUE TO MONITOR THIS PATIENT WITH THE HELP OF STAFF.
[2021-11-13 06:16] VITALS: BP 107/64
[2021-11-13] MEDS: CEPHALEXIN MONOHYDRATE 500 MG CAPSULE PO SCH (06:22)
[2021-11-13 08:00] VITALS: BP 100/62
[2021-11-13] MEDS: CLOZAPINE 25 MG TABLET PO SCH (08:52)
[2021-11-13] MEDS: FLUVOXAMINE MALEATE 50 MG TABLET PO SCH ×3 (08:52→21:21)
[2021-11-13] MEDS: DIVALPROEX SODIUM 500 MG TABLET.DR PO SCH ×2 (08:57→21:21)
[2021-11-13 16:00] VITALS: BP 112/77
[2021-11-13 20:00] VITALS: BP 102/70
[2021-11-13] MEDS: CLOZAPINE 100 MG TABLET PO SCH (21:22)
[2021-11-14 08:00] VITALS: BP 100/60
[2021-11-14] MEDS: FLUVOXAMINE MALEATE 50 MG TABLET PO SCH ×3 (08:17→21:37)
[2021-11-14] MEDS: CLOZAPINE 25 MG TABLET PO SCH (08:17)
[2021-11-14] MEDS: DIVALPROEX SODIUM 500 MG TABLET.DR PO SCH ×2 (08:30→20:31)
[2021-11-14 19:31] VITALS: BP 111/72
[2021-11-14] MEDS: CLOZAPINE 100 MG TABLET PO SCH (21:28)
--- NOTE | 2021-11-14 21:59 | NUR ---
RN NOTE: SEEN BY DR. WALDRON PATIENT IS SEEN BY DR. WALDRON, PATIENT DENIED AUDITORY/VISUAL HALLUCINATIONS, STATED," I AM FEELING BETTER AND I WANT TO GO TO ASSISTED LIVING IN [place] ONCE I AM DISCHARGED." PATIENT DENIED ANY SIDE EFFECTS OF ANY MEDICATION AT THIS TIME. INFORMED THE PATIENT THAT SHE WILL BE DISCHARGED ON 11/16/2021 AND HEEL WASHER STRINGING MACHINE OPERATOR WILL BE INFORMED IN AM ABOUT PATIENT'S DISCHARGE PLANNING. WILL ENDORSE TO AM RN TO RELAY THE MESSAGE TO THE HEEL WASHER STRINGING MACHINE OPERATOR.
--- NOTE | 2021-11-15 07:03 | NUR ---
RN NOTE PATIENT SLEPT WELL AT NIGHT. NO BEHAVIOR EPISODE THROUGH OUT THE SHIFT NOTED. WILL ENDORSE TO AM RN FOR CONTINUITY OF CARE.
[2021-11-15 08:00] VITALS: BP 117/93
--- NOTE | 2021-11-15 08:43 | NUR ---
JAMES Family Contact: JAMES spoke with patient's conservator Rashaad ([phone]) and stated that he will pickle solution maker pt at 9AM 11/16.
--- NOTE | 2021-11-15 08:43 | NUR ---
Board and Care Mandy Wagner: JAMES contacted admin Padmini/Adamaris ([phone]) who stated pt is welcomed back.
[2021-11-15] MEDS: CLOZAPINE 25 MG TABLET PO SCH (09:23)
[2021-11-15] MEDS: DIVALPROEX SODIUM 500 MG TABLET.DR PO SCH ×2 (09:23→21:03)
[2021-11-15] MEDS: FLUVOXAMINE MALEATE 50 MG TABLET PO SCH ×3 (09:23→21:03)
--- NOTE | 2021-11-15 09:23 | NUR ---
Coordination of Care: Patient will follow up with (Psychiatrist) Dr. Марина Holcomb located at [address] [place] [phone]; ([phone]) on 11/21/2021. Per pt's counseling case manager Cornel ([phone]) from [facility] is notified and she stated pt will follow up with the outpatient psychiatrist.
[2021-11-15 16:00] VITALS: BP 117/93
[2021-11-15 20:00] VITALS: BP 117/65
[2021-11-15] MEDS: CLOZAPINE 100 MG TABLET PO SCH (21:03)
[2021-11-16 08:00] VITALS: BP 100/63
--- NOTE | 2021-11-16 08:18 | NUR ---
SW Discharge Note: Patient will be discharged back to her Board and Care Mandy Bernard located at [address] [place], [place]; ([phone]). Pts brother [facility] Valery Neil ([phone]) will pick out hand pt at 9AM. Admin Padmini and Adamaris ([phone]) are aware of patients discharge. Patients brother JALEESA Neil ([phone]) is aware of discharge. Patient is alert and oriented x3. Patient denies visual/auditory hallucinations. Patient denies suicidal or homicidal ideation. Patient will follow up with (Primary) Dr. Houston Brandon [address] [place] [address]; ([phone]). Patient will follow up with (Psychiatrist) Dr. Марина Holcomb located at [address] [place] [phone]; ([phone]) on 11/21/2021. Pts casework specialist Cornel ([phone]) from [facility] is notified. Patient presents with euthymic mood and congruent affect.
[2021-11-16] MEDS: DIVALPROEX SODIUM 500 MG TABLET.DR PO SCH (08:37)
[2021-11-16] MEDS: FLUVOXAMINE MALEATE 50 MG TABLET PO SCH (08:37)
[2021-11-16] MEDS: CLOZAPINE 25 MG TABLET PO SCH (08:38)
--- NOTE | 2021-11-16 09:20 | NUR ---
Patient has been discharged back to her Board and Care Mandy Yuliyaarthur. Pt left unit @ 0920. Pts brother [facility] Valery Neil ([phone]) picked PT up. Patients brother [facility] Valery Neil ([phone]) is aware of discharge. Patient is alert and oriented x3. Patient denies visual/auditory hallucinations. Patient denies suicidal or homicidal ideation. Exit Care education, instructions and forms give. Prescription given in exit care packet. All belongins returned and signed. Good steady gait. Pt escorted to [facility] by GPS staff. Patient will follow up with (Primary) Dr. Houston Brandon [address] [place] [phone]; ([phone]). Patient will follow up with (Psychiatrist) Dr. Марина Holcomb located at [address] [place] [address] [phone]; ([phone]) on 11/21/2021.
== END 2021-11-16 09:20 | DRG 885 ==
LOC: ER 10:48 → GPS 14:46
PROVIDERS: ADMIT Psychiatry & Neurology Psychiatry; ATTEND Nurse Practitioner Acute Care
DX: F31.64 Bipolar disorder, current episode mixed, severe, with psychotic features (principal); N39.0 Urinary tract infection, site not specified; N13.30 Unspecified hydronephrosis; R45.851 Suicidal ideations; F23 Brief psychotic disorder; E78.5 Hyperlipidemia, unspecified; E78.00 Pure hypercholesterolemia, unspecified; Z87.81 Personal history of (healed) traumatic fracture; R45.850 Homicidal ideations; Z79.899 Other long term (current) drug therapy; B96.89 Other specified bacterial agents as the cause of diseases classified elsewhere; Z91.81 History of falling; Z73.6 Limitation of activities due to disability; F41.9 Anxiety disorder, unspecified; R53.1 Weakness; R27.8 Other lack of coordination
CPT/HCPCS: 36415; 80048-TC; 80053-TC; 80061-TC; 80076-TC; 80164-TC; 81001; 85025-TC; 87081-TC; C9803; G0480; J0696; J3490

== ENCOUNTER 2022-04-30 12:28 | Emergency (ER) | payer MEDICARE, OTHER ==
[~2022-04-30] VITALS: Ht 182.9 cm; Wt 72.1 kg
--- NOTE | 2022-04-30 12:40 | NUR ---
BIBERLINDA AND [employer]#[id number] FROM BROTHER'S HOME C/O SUICIDAL, DENIES HI. DENIES HALLUCINATIONS. THE PATIENT DENIES PAIN. IN ROOM AIR AND DENIES SOB. RESPIRATION REGULAR AND UNLABORED. WILL CONTINUE TO MONITOR THE PATIENT.
[2022-04-30] MEDS ORDERED: CLOZ100T32 PO (12:43)
[2022-04-30] MEDS ORDERED: MIRT-90 PO (12:43)
[2022-04-30] MEDS ORDERED: DOCU-141 PO (12:43)
[2022-04-30] MEDS ORDERED: DIVA500T54 PO (12:43)
[2022-04-30] MEDS ORDERED: SERT25TA PO (12:43)
--- NOTE | 2022-04-30 12:47 | NUR ---
COVID ANTIGEN SWAB DONE AND SENT TO THE LAB
--- NOTE | 2022-04-30 12:48 | NUR ---
Eben west in [place] - 04/30/22 at 1358 by HANG URINE COLLECTED AND SENT TO THE LAB
[2022-04-30 13:02] LABS: BASOPHILS % (AUTO) 0.4 % (0.0-2.0); EOSINOPHILS % (AUTO) 0.4 % (0.0-6.0); HEMATOCRIT 38 % (33-45); HEMOGLOBIN 12.4 g/dL (11.5-14.8); LYMPHOCYTES # (AUTO) 1.6 K/uL (0.8-4.8); LYMPHOCYTES % (AUTO) 22.1 % (20.0-44.0); MEAN CORPUSCULAR HGB CONC 33 g/dl (31.0-36.0); MEAN CORPUSCULAR VOLUME 94 fL (82-100); MONOCYTES # (AUTO) 0.5 K/uL (0.1-1.30); MONOCYTES % (AUTO) 7.5 % (2.0-12.0); NEUTROPHILS % (AUTO) 69.6 % (43.0-81.0); PLATELET COUNT (AUTO) 137 K/uL (150-450); WHITE BLOOD COUNT (AUTO) 7.1 K/uL (4.3-11.0)
[2022-04-30 13:16] LABS: ACETAMINOPHEN 0 ug/ml (10-30); ALANINE AMINOTRANSFERASE 10 U/L (12-78); ALBUMIN 3.5 g/dL (3.4-5.0); ALCOHOL, BLOOD < 3 mg/dL (0-0); ALKALINE PHOSPHATASE 49 U/L (46-116); ASPARTATE AMINOTRANSFERASE 11 U/L (15-37); BILIRUBIN,DIRECT 0.1 mg/dL (0.0-0.2); BILIRUBIN,TOTAL 0.3 mg/dL (0.2-1.0); CALCIUM, SERUM 8.9 mg/dL (8.5-10.1); CARBON DIOXIDE 28 mmol/L (21-32); CHLORIDE 107 mmol/L (98-107); CREATININE 0.9 mg/dL (0.6-1.3); GLUCOSE 95 mg/dL (74-106); POTASSIUM 4.2 mmol/L (3.5-5.1); SODIUM SERUM 142 mmol/L (136-145); TOTAL PROTEIN, SERUM 7.1 g/dL (6.4-8.2); UREA NITROGEN, BLOOD 22 mg/dL (7-18)
--- NOTE | 2022-04-30 14:08 | NUR ---
URINE COLLECTED AND SENT TO LAB
[2022-04-30 15:20] LABS: BILIRUBIN,URINE NEGATIVE (NEGATIVE); COLOR,URINE YELLOW (YELLOW); LEUKOCYTE ESTERASE ,URINE SMALL (NEGATIVE); NITRITE, URINE NEGATIVE (NEGATIVE); PROTEIN,URINE NEGATIVE (NEGATIVE); UGLUCOSE NEGATIVE (NEGATIVE); UROBILINOGEN,URINE 0.2 EU/dL (0.2)
[2022-04-30 15:28] LABS: BACTERIA,URINE RARE /HPF (None Seen); MUCUS,URINE Few /LPF (None Seen)
[2022-04-30] MEDS ORDERED: CEPH500C2 PO (15:39)
[2022-04-30] MEDS ORDERED: CEPHALEXIN MONOHYDRATE 500 MG CAPSULE PO ONE (16:00)
[2022-04-30] MEDS: CEPHALEXIN MONOHYDRATE 500 MG CAPSULE PO ONE (16:01)
[2022-04-30] MEDS ORDERED: ZIPRASIDONE MESYLATE 20 MG/VIAL VIAL IM ONE (16:33)
[2022-04-30] MEDS: ZIPRASIDONE MESYLATE 20 MG/VIAL VIAL IM ONE (16:39)
[2022-04-30] MEDS ORDERED: LORAZEPAM INJ 2 MG/ML VIAL ONE (17:34)
[2022-04-30] MEDS ORDERED: diphenhydrAMINE HCL 50 MG/ML VIAL ONE (17:34)
[2022-04-30] MEDS: LORAZEPAM INJ 2 MG/ML VIAL IM/IV ONE (17:35)
[2022-04-30] MEDS: diphenhydrAMINE HCL 50 MG/ML VIAL IM ONE (17:35)
--- NOTE | 2022-04-30 23:30 | NUR ---
PT VERBALIZED THAT SHE WOULD LIKE TO GO VOLUNTARY ADMISSION.
--- NOTE | 2022-04-30 23:30 | NUR ---
CLINICALS SENT OVER TO [facility]
--- NOTE | 2022-05-01 06:27 | NUR ---
PT ACCEPTED AT [facility] UNDER THE CARE OF DR. MELGOZA. CALL [phone] FOR REPORT.
--- NOTE | 2022-05-01 06:36 | NUR ---
REPORT GIVEN TO LEELEE
--- NOTE | 2022-05-01 06:36 | NUR ---
PER LEELEE, INS[facility]ULT[facility] AT [facility]. SEND PT AFTER [id number]
--- NOTE | 2022-05-01 07:07 | NUR ---
LESLYE FROM [facility] CONTACTED AND TRANSPORT HAS BEEN REQUESTED. WILL CALL BACK FOR TRANSPORT CONFIRMATION.
[2022-05-01 09:58] VITALS: BP 124/84
--- NOTE | 2022-05-01 10:01 | NUR ---
[facility] CALLED WITH ACCEPTANCE INFO UNDER THE CARE DR. MELGOZA NUMBER FOR REPORT [phone] ETA FOR TRANSPORT 1100
--- NOTE | 2022-05-01 10:12 | NUR ---
TRANPORTATION ARRIVED, PT WAS GIVEN BELONGINGS AND MEDICATION, PT TRANSPORTED IN STABLE CONDITION.
== END 2022-05-01 10:23 ==
LOC: ER 13:38
DX: R45.851 Suicidal ideations (principal); Z79.899 Other long term (current) drug therapy; N39.0 Urinary tract infection, site not specified; Z20.822 Contact with and (suspected) exposure to COVID-19
CPT/HCPCS: 36415; 80048; 80076; 80143; 80307; 80320; 81001; 85025; 87086; 87426; 96372 ×2; 99285; C9803; J1200; J2060; J3486; G0480

== ENCOUNTER 2022-06-13 10:25 | Emergency (ER) | payer OTHER ==
[~2022-06-13] VITALS: Ht 172.7 cm; Wt 72.6 kg
[~2022-06-13 10:25] MED LIST changes: -ACET-3292 PO; +CEPH500C2 PO; +CLOZ100T32 PO; +DIVA500T54 PO; +DOCU-141 PO; -FLUO40CA49 PO; -HALO5TAB PO; -LOPE2CAP PO; +MIRT-90 PO; -MULT-754 PO; -OMEG1CAP PO; -QUET200T PO; +SERT25TA PO
--- NOTE | 2022-06-13 12:00 | NUR ---
Eda ANDREA (Rustter) On direct Line of sight for patient safety
[2022-06-13 12:19] LABS: BASOPHILS % (AUTO) 0.6 % (0.0-2.0); EOSINOPHILS % (AUTO) 0.8 % (0.0-6.0); HEMATOCRIT 41 % (33-45); HEMOGLOBIN 13.6 g/dL (11.5-14.8); LYMPHOCYTES # (AUTO) 1.5 K/uL (0.8-4.8); LYMPHOCYTES % (AUTO) 30.6 % (20.0-44.0); MEAN CORPUSCULAR HGB CONC 33 g/dl (31.0-36.0); MEAN CORPUSCULAR VOLUME 96 fL (82-100); MONOCYTES # (AUTO) 0.5 K/uL (0.1-1.30); MONOCYTES % (AUTO) 9.6 % (2.0-12.0); NEUTROPHILS # (AUTO) 2.9 K/uL (1.8-8.9); NEUTROPHILS % (AUTO) 58.4 % (43.0-81.0); PLATELET COUNT (AUTO) 158 K/uL (150-450); RED BLOOD CELL COUNT(AUTO) 4.33 MIL/uL (4.0-5.2); WHITE BLOOD COUNT (AUTO) 4.9 K/uL (4.3-11.0)
[2022-06-13 12:41] LABS: CALCIUM, SERUM 8.5 mg/dL (8.5-10.1); CARBON DIOXIDE 31 mmol/L (21-32); CHLORIDE 105 mmol/L (98-107); CREATININE 0.8 mg/dL (0.6-1.3); GLUCOSE 99 mg/dL (74-106); POTASSIUM 4.2 mmol/L (3.5-5.1); SODIUM SERUM 140 mmol/L (136-145); UREA NITROGEN, BLOOD 15 mg/dL (7-18)
[2022-06-13 12:46] LABS: ALANINE AMINOTRANSFERASE 17 U/L (12-78); ALBUMIN 3.5 g/dL (3.4-5.0); ALKALINE PHOSPHATASE 53 U/L (46-116); ASPARTATE AMINOTRANSFERASE 14 U/L (15-37); BILIRUBIN,DIRECT 0.1 mg/dL (0.0-0.2); BILIRUBIN,TOTAL 0.4 mg/dL (0.2-1.0); TOTAL PROTEIN, SERUM 7.4 g/dL (6.4-8.2)
[2022-06-13 12:49] LABS: ACETAMINOPHEN < 10 ug/ml (10-30); ALCOHOL, BLOOD < 3 mg/dL (0-0)
--- NOTE | 2022-06-13 13:00 | NUR ---
Reclining in bed NO acute changes. Directable/cooperative
[2022-06-13 13:56] LABS: BILIRUBIN,URINE NEGATIVE (NEGATIVE); COLOR,URINE YELLOW (YELLOW); LEUKOCYTE ESTERASE ,URINE TRACE (NEGATIVE); NITRITE, URINE NEGATIVE (NEGATIVE); PH,URINE 6.5 (5.0-8.0); PROTEIN,URINE NEGATIVE (NEGATIVE); UGLUCOSE NEGATIVE (NEGATIVE); UROBILINOGEN,URINE 0.2 EU/dL (0.2)
--- NOTE | 2022-06-13 14:05 | NUR ---
FAXED PT CLINICALS TO [facility]
[2022-06-13 14:49] LABS: BACTERIA,URINE None seen /HPF (None Seen); SQUAMOUS EPITHELIAL CELL,UR Rare /HPF (None Seen); WBC,URINE 0-2 /HPF (0-3)
--- NOTE | 2022-06-13 20:39 | NUR ---
[facility] CALLED TO ACCEPT PT UNDER DR RICHARDSON [phone] PER ART STATES OFFICAL ROOM NUMBER WILL BE GIVEN AT TIME OF RN REPORT
--- NOTE | 2022-06-13 20:44 | NUR ---
[facility] CALLED FOR BLS TO [facility] PER [facility] REQUEST PT WILL BE PICKED UP FROM [facility] ER AFTER [phone]
--- NOTE | 2022-06-13 20:50 | NUR ---
REPORT GIVEN TO LEELEE CLEMENTS FROM [facility] FOR [facility]
--- NOTE | 2022-06-13 23:25 | NUR ---
PER ART FOR [facility], THEY MUST GET AUTH FROM CONSERVATOR PRIOR TO ACCEPTING PT.
--- NOTE | 2022-06-13 23:27 | NUR ---
[facility] TRANSPORT PUT ON WILL CALL
--- NOTE | 2022-06-14 00:30 | NUR ---
PER ART FROM [facility], PT AUTHORIZED FOR ACCEPTANCE.
--- NOTE | 2022-06-14 00:32 | NUR ---
[facility] ETA 0209
--- NOTE | 2022-06-14 01:44 | NUR ---
REPORT GIVEN TO [facility] FOR PT TO DC PT TO [facility]
[2022-06-14 01:45] VITALS: BP 127/81
--- NOTE | 2022-06-14 01:52 | NUR ---
PT DC TO [facility]. ALL BELONGINGS WITH PT. VSS.
== END 2022-06-14 01:52 ==
LOC: ER 10:34
DX: R45.851 Suicidal ideations (principal); R45.850 Homicidal ideations; F32.A Depression, unspecified; Z20.822 Contact with and (suspected) exposure to COVID-19; Z79.899 Other long term (current) drug therapy; R00.0 Tachycardia, unspecified
CPT/HCPCS: 99285; 85025; 80048; 80076; 81001; 36415; 87426; 80143; 80320; 80307; C9803; G0480